=== PATIENT | female | born 1975 | race Caucasian/White ===

== ENCOUNTER 2020-04-26 16:47 | Emergency (ER) | payer OTHER ==
[2020-04-26 17:04] VITALS: BP 123/81; PULSE 130; RESP 16; TEMP 100
[2020-04-26] MEDS ORDERED: AMOXIC-POT CLAV 875MG STARTER PACK 2 TAB BTL PO STA (17:28)
[2020-04-26] MEDS ORDERED: LIDOCAINE 1% INJ 10MG/ML (20 ML MDV) SQ ONE (17:28)
[2020-04-26] MEDS ORDERED: ACET/COD 300 MG/30 MG STARTER PACK 6 TAB BTL PO STA (17:28)
--- NOTE | 2020-04-26 17:30 | ED ---
Animal Bite HPI - General Chief Complaint: Animal Bite Stated Complaint: Dog bite Time Seen by Provider: 04/26/20 16:58 Source: patient, family Mode of arrival: ambulatory Limitations: no limitations - History of Present Illness Initial Comments: 44-year-old female presenting today for chief complaint of dog bite to the right hand. Patient states she sustained multiple lacerations after dog bite just prior to arrival from her own pet. Patient denies any abnormal behavior states this happened in the past. She states she has an updated tetanus within the past 5 years. She states there is no limitations in range of motion or strength of the digits of the right hand equal to person of the left. Denies numbness, tingling or loss of sensation. Patient denies concern for rabies, states vaccinations of the dog are UTD. Patient denies additional complaints. Upon arrival patient appears well no acute distress. - Related Data Previous Rx's Medication Instructions Recorded Amoxicillin/Potassium Clav 1 tab PO Q12HR 7 Days #14 tab 04/26/20 [Augmentin 875-125 Tablet] Allergies Allergy/AdvReac Type Severity Reaction Status Date / Time No Known Allergies Allergy Verified 04/26/20 17:04 Review of Systems ROS Statement: Those systems with pertinent positive or pertinent negative responses have been documented in the HPI. ROS Other: All systems not noted in ROS Statement are negative. Past Medical History Past Medical History: Mitral Valve Prolapse (MVP) History of Any Multi-Drug Resistant Organisms: None Reported Additional Past Surgical History / Comment(s): Pt states she had reconstructive surgery on her right wrist when she was 12. Past Psychological History: No Psychological Hx Reported Smoking Status: Current some day smoker Past Alcohol Use History: Occasional Past Drug Use History: None Reported General Exam - General Exam Comments Initial Comments: General: The patient is awake and alert, in no distress Eye: Pupils are equal, round and reactive to light, extra-ocular movements are intact. No nystagmus. There is normal conjunctiva bilaterally. No signs of icterus. Ears, nose, mouth and throat: There are moist mucous membranes and no oral lesions. Neck: The neck is supple, there is no tenderness or JVD. Cardiovascular: There is a regular rate and rhythm. No murmur, rub or gallop is appreciated. Respiratory: Lungs are clear to auscultation, respirations are non-labored, breath sounds are equal. No wheezes, stridor, rales, or rhonchi. Gastrointestinal: Soft, non-distended, non-tender abdomen without masses or organomegaly noted. There is no rebound or guarding present. Musculoskeletal: Normal ROM, no tenderness. Strength 5/5. Sensation intact. Radial pulses equal bilaterally 2+. Neurological: A&O x 3. CN II-XII intact grossly, There are no obvious motor or sensory deficits. Coordination appears grossly intact. Speech is normal. Skin: Skin is warm and dry and no rashes. 6 lacerations of the hand-#1 1.5cm thenar eminence linear, 3cm irregular superior to the laceration #1 thumb site of mid hand. small superficial laceration of the ulnar aspect of the hand near base of hand approximately 1cm there are 3 lacerations on the dorsal aspect of hand 2cm, 1cm near thumb mid hand and ulnar aspect. No foreign body noted of the lacerations, no exposure of underlying structures. Psychiatric: Cooperative, appropriate mood & affect, normal judgment. Limitations: no limitations Course Vital Signs 04/26/20 16:53 Temperature 100 F H Pulse Rate 130 H Respiratory 16 Rate Blood Pressure 123/81 O2 Sat by Pulse 96 Oximetry Procedures - Laceration Laceration #1 Consent Obtained: verbal consent Site: scalp, hand Size (cm): 0 (1.5 actual size) Description: linear Depth: simple, single layer Anesthetic Used: lidocaine 1% Anesthesia Technique: local infiltration Amount (mls): 1 Pre-repair: wound explored, irrigated extensively, deep structures intact Type of Sutures: nylon Size of Sutures: 5-0 Number of Sutures: 2 Technique: simple, interrupted Patient Tolerated Procedure: well, no complications Additional Comments: loosely approximated Laceration #2 Consent Obtained: verbal consent Indication: laceration Site: hand Size (cm): 3 Description: irregular Depth: simple, single layer Anesthetic Used: lidocaine 1% Anesthesia Technique: local infiltration Amount (mls): 2 Pre-repair: wound explored, irrigated extensively, deep structures intact Type of Sutures: nylon Size of Sutures: 5-0 Number of Sutures: 4 Technique: simple, interrupted Patient Tolerated Procedure: well, no complications Additional Comments: loosely approximated Laceration #3 Consent Obtained: verbal consent Indication: laceration Site: hand Size (cm): 2 Description: linear Depth: simple, single layer Anesthetic Used: lidocaine 1% Anesthesia Technique: local infiltration Amount (mls): 1 Pre-repair: wound explored, irrigated extensively, deep structures intact Type of Sutures: nylon Size of Sutures: 5-0 Number of Sutures: 3 Technique: simple, interrupted Patient Tolerated Procedure: well, no complications Additional Comments: loosely approximated Laceration #4 Consent Obtained: verbal consent Indication: laceration Site: hand Size (cm): 1 Description: linear Depth: simple, single layer Anesthetic Used: lidocaine 1% Anesthesia Technique: local infiltration Amount (mls): 1 Pre-repair: wound explored, irrigated extensively, deep structures intact Type of Sutures: nylon Size of Sutures: 5-0 Number of Sutures: 1 Technique: simple, interrupted Patient Tolerated Procedure: well, no complications Additional Comments: loosely approximated Medical Decision Making - Medical Decision Making 44-year-old female presented for dog bites right hand. There was a total of 6 laceration for which needed loosely repaired secondary to gapping nature. Patient had total of 9 loosely approximated sutures. Patient has lacerations extensively irrigated prior to closure cleansed with iodine. Antibiotics initiated in the ER. Patient aware of risk of infection. Strict return parameters. bandaged. Tdap updated. Patient discharged appearing well after discussing case with Dr. Miller. Disposition Clinical Impression: Animal bites, Hand injury, Dog bite, hand Disposition: HOME SELF-CARE Condition: Good Instructions (If sedation given, give patient instructions): Animal Bite (ED) Additional Instructions: Please use medication as discussed. Please follow-up with family doctor in the next 2 days, this type of bite is prone to infection--please monitor closely any hand swelling, difficulty moving fingers, increasing pain, drainage you need to seek immediate emergency treatment/re-evaluation. Please return to emergency room if the symptoms increase or worsen or for any other concerns. Prescriptions: Amoxicillin/Potassium Clav [Augmentin 875-125 Tablet] 1 tab PO Q12HR 7 Days #14 tab Is patient prescribed a controlled substance at d/c from ED?: No Referrals: Tonya Vega MD [Primary Care Provider] - 1-2 days Time of Disposition: 17:30
--- NOTE | 2020-04-26 18:09 | XR ---
EXAMINATION TYPE: XR hand complete RT DATE OF EXAM: 04/26/2020 COMPARISON: NONE HISTORY: Laceration TECHNIQUE: 3 views FINDINGS: I see no fracture nor dislocation. Joint spaces are normal. There are no erosions. There is no subluxation. There are no pathologic calcifications. There is probably some soft tissue air bubbles on the anterior aspect of the second and third metacar pals. IMPRESSION: Soft tissue air consistent with laceration. No foreign body seen. No fracture.
== END 2020-04-26 18:30 | disposition home or self-care (01) ==
LOC: EC 16:47
DX: S61.411A Laceration without foreign body of right hand, initial encounter (principal); W54.0XXA Bitten by dog, initial encounter; F17.200 Nicotine dependence, unspecified, uncomplicated
CPT/HCPCS: 73130; 99283; 12002; J2001